=== PATIENT | male | born 2000 | race Caucasian/White ===

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

== ENCOUNTER → 2023-05-01 11:00 | Outpatient (CLI) | payer OTHER, SELFPAY ==
--- NOTE | ~2023-05-01 | XR_ITS ---
AP and oblique views of the left ribs Clinical History: Pain Findings: No rib fracture is seen. Osseous alignment is anatomic. Lungs are clear, without focal cons olidation or pleural effusion. Cardiomediastinal contour is within normal limits. Soft tissues are un remarkable. Impression: No rib fracture is seen. Reviewed, dictated and finalized at [facility]. Impression: No rib fracture is seen.
== END ==
PROVIDERS: PCP Clinical Nurse Specialist; Visit Provider Clinical Nurse Specialist
DX: R07.81 Pleurodynia (principal)
CPT/HCPCS: 71100

== ENCOUNTER → 2023-05-03 10:26 | Outpatient (CLI) | payer OTHER, MEDICAID, SELFPAY ==
--- NOTE | ~2023-05-03 | US_ITS ---
EXAMINATION: US soft tissue abdomen DATE: 05/03/2023 10:50 INDICATION: Left lower rib pain. Pleurodynia. TECHNIQUE: Multiple grayscale and Doppler ultrasound images of the abdomen were obtained. COMPARISON: Left rib radiographs 05/01/2023 FINDINGS: Unremarkable ribs are seen in the patient's area of concern. IMPRESSION: 1. Unremarkable ribs are seen in the patient's area of concern. Reviewed, dictated and finalized at location B.
== END ==
PROVIDERS: PCP Internal Medicine; Visit Provider Clinical Nurse Specialist
DX: R07.81 Pleurodynia (principal)
CPT/HCPCS: 76705

== ENCOUNTER 2025-07-01 16:37 | Emergency (ER) | payer OTHER, SELFPAY ==
--- OUTSIDE RECORDS SUMMARY | 2025-07-01 16:19 | XMS_ITS | Encounter Summary ---
Author Organization [facility] Address [address] [place] [address] Phone Care Team Providers Care Brusher Hand Name Role Phone Nenita Lim MD Primary Care Provider [phone]- [phone] Reason for Visit * Reason Comments Loss of Consciousness Laceration Encounter Details Date Type Department Care Team (Late st Contact Info) Description 07/01/2025 4:19 PM CDT - 07/01/2025 4:25 PM CDT Emergency [facility] Emergency [address] [place] [address] Discharge Disposition: LWBS Social History Tobacco Use Types Packs/Day Years Used Date Smoking Tobacco: Never Smokeless Tobacco: Never Alcohol Use Standard Drinks/Week Comments No 0 (1 standard drink = 0.6 oz pur e alcohol) Sex and Gender Information Value Date Recorded Sex Assigned at Not on file Legal Sex Male 9:01 PM CDT Gender Identity Not on file Sexual Orientation Not on file documented as of this encounter Last Filed Vital Signs Vital Sign Reading Time Taken Comments Blood Pressure 136/56 07/01/2025 3:00 PM CDT Pulse 60 07/01/2025 3:00 PM CDT Temperature 37 C (98.6 F) 07/01/2025 3:00 PM CDT Respiratory Rate 18 07/01/2025 3:00 PM CDT Oxygen Saturation 100% 07/01/2025 3:00 PM CDT Inhaled Oxygen Concentration - - Weight 63.5 kg (139 lb 15.9 oz) 07/01/2025 3:00 PM CDT Height 177.8 cm (5' 10) 07/01/2025 3:00 PM CDT Body Mass Index 20.09 07/01/2025 3:00 PM CDT documented in this encounter Medications at Time of Discharge Cetirizine HCl (ZYRTEC PO) Take by mouth. naproxen (NAPROSYN) 500 MG Tablet Take 1 Tablet by mouth 2 times daily as needed for Moderate or more severe pain. 20 Tablet 04/03/2022 documented as of this encounter ED Notes * Aleena Shepherd RN - 07/01/2025 4:25 PM CDT Attempt to call for a room and has left without being seen. * Latonia Sow RN - 07/01/2025 3:02 PM CDT Pt to triage with c/o pain to forehead from laceration. Pt states that he went with his friend to give blood today, he was watching her give blood and passed out, causing him to fall and his glasses broke cutting his left eyebrow. Vss. Bleeding controlled, dressing applied. documented in this encounter Plan of Treatment Not on file documented as of this encounter Visit Diagnoses Not on filedocumented in this encounter Care Teams Brusher Hand Relationship Specialty Start Date End Date Nenita Lim MD [address] [place] [address] PCP - General Pediatrics 06/25/19 documented as of this encounter
--- OUTSIDE RECORDS SUMMARY | 2025-07-01 16:39 | XMS_ITS | Clinical Summary ---
Author Organization [facility] [employer] Address [address] [place] [address] Care Team Providers Care [employer]ad[employer] Plans Staff Officer Name Role Phone Nenita Lim MD Primary Care Provider [phone]- [phone] Source Comments [facility] [employer],non-owned Affiliates and Associated Physician Practices is amultiple site organization consisting of ambulatory clinics and hospital sitesin [place], [place], [place] and [place]. This disclosure is being madepursuant to the Care Everywhere program and may not contain all information available regarding this patient. Last updated 18.[facility] [employer] Allergies No known active allergies Medications * Be aware that medications may not be up to date on this document. Alwaysverify current medications with the patient. cetirizine (ZYRTEC) 10 MG tablet Take 10 mg by mouth once daily as needed Active acetaminophen (TYLENOL) 500 MG tablet Take 500-1,000 mg by mouth every 6 hours as needed for Fever or Pain Maximum allowable Acetaminophen amount = 4 Grams (4000 mg) / 24 hours. Active cyproheptadine (PERIACTIN) 4 MG tablet Take 4 mg by mouth at bedtime 2 Active naproxen (NAPROSYN) 500 MG tablet Take 500 mg by mouth 2 times daily as needed 2 Active Active Problems Problem Noted Date Diagnosed Date Epigastric pain 05/06/2020 Patellar tracking disorder 04/10/2019 Medial epicondylitis of elbow, right 04/10/2019 Arthralgia 04/09/2019 Chronic pain of both knees Family History Medical History Relation Name Comments Thyroid Disease Father Arthritis - Rheumatoid Maternal Grandmother Arthritis - Rheumatoid Mother Crohn's Disease Neg Hx Lupus Neg Hx Psoriasis Neg Hx Relation Name Status Comments Father Maternal Grandmother Mother Social History Tobacco Use Types Packs/Day Years Used Date Smoking Tobacco: Never Smokeless Tobacco: Never Alcohol Use Standard Drinks/Week Comments Never 0 (1 standard drink = 0.6 oz pur e alcohol) AUDIT-C Answer Date Recorded Q1: How often do you have a drink containing alc ohol? 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 Gender Identity Not on file Sexual Orientation Not on file Last Filed Vital Signs Vital Sign Reading Time Taken Comments Blood Pressure 120/70 12/31/2020 2:30 PM CDT Pulse 56 06/15/2020 1:00 PM CDT Temperature 36.2 C (97.1 F) 06/15/2020 12:20 PM CDT Respiratory Rate 16 06/15/2020 12:30 PM CDT Oxygen Saturation 98% 06/15/2020 1:00 PM CDT Inhaled Oxygen Concentration - - Weight 64.4 kg (142 lb) 04/06/2022 11:16 AM CDT Height 178.2 cm (5' 10.16) 12/31/2020 2:30 PM C DT Body Mass Index 20.28 12/31/2020 2:30 PM CDT Plan of Treatment Health Maintenance Due Date Last Done Comments HIV SCREENING 2017 HPV VACCINE (1 - Male 3-dose series) 2017 MENINGOCOCCAL (Group B) VACC INE SHARED DECISION-MAKING (1 of 2 - Standard) 2018 HEPATITIS C SCREENING 11/16/2020 DTAP/TDAP/TD VACCINES (1 - Tdap) 2021 HEPATITIS B VACCINE (1 of 3 - 19+ 3-dose series) 2021 DEPRESSION SCREENING 10/02/2024 COVID-19 VACCINE (1 - 2023-2 5 season) 2025 INFLUENZA VACCINE (#1) 2025 ZOSTER VACCINE (1 of 2) 2052 HIB VACCINE Aged Out No longer eligi ble based on patient's age to complete this topic MENINGOCOCCAL GROUPS A/C/Y/W VACCINE Aged Out No longer eligible b ased on patient's age to complete this topic PNEUMOCOCCAL VACCINE Aged Out No long er eligible based on patient's age to complete this topic Insurance * Guarantor: X,Y Account Type Relation to Patient Date of Phone Billing Address Personal/Family [address] [place] [address] [facility] Care Teams Aadc Plans Staff Officer Relationship Specialty Start Date End Date Nenita Lim MD [address] [place] [address] PCP - General Pediatrics 10/10/16
--- OUTSIDE RECORDS SUMMARY | 2025-07-01 16:39 | XMS_ITS | Clinical Summary ---
Author Organization [facility] Address [address] [place] [address] Phone Care Team Providers Care Product Support Representative Name Role Phone Nenita Lim MD Primary Care Provider +1- [phone] Allergies No known active allergies Medications Cetirizine HCl (ZYRTEC PO) Take by mouth. Active naproxen (NAPROSYN) 500 MG Tablet Take 1 Tablet by mouth 2 times daily as needed for Moderate or more severe pain. 20 Tablet 04/03/2022 Active Encounters Date Type Department Care Team Description 07/01/2025 4:19 PM CDT - 07/01/2025 4:25 PM CDT Emergency [facility] Emergency [address] [place] [address] Discharge Disposition: LWBS 07/01/2025 Travel from Last 3 Months Social History Tobacco Use Types Packs/Day Years [...] Mass Index 20.09 07/01/2025 3:00 PM CDT Plan of Treatment Health Maintenance Due Date Last Done Comments Hepatitis C Virus (HCV) Screening 2002 Meningococcal B Immunization (1 of 2 - Standard) 2018 Influenza Immunization (#1) 2025 09/29/2003, 1 2002 SARS-COV-2 Immunization ( - season) 2025 Respiratory Syncytial Virus (RSV) Immunization (Adult) (1 - 1-dose 75+ series) 2077 Hepatitis B Immunization Completed 003, 2002, 2002 Polio (IPV) Immunization Discontinued 004, 03/21/2003, 01/20/2003 Pneumococcal Immunization Combined Aged Out 11/25/2004, 05/22/2003, 03/21/2003, Additional history exists No longer eligible based on patient's age to complete this topic Measles Mumps Rubella (MMR) Immunization Discontinued 12/07/2007, 12/10/2003 Varicella Immunization Discontinued 12/07/2007, 2003 Hepatitis A Immunization Discontinued 03/16/2012, 04/2008 DTaP/Tdap/Td Immunization Discontinued 2013, 12/07/2007, 02/20/2004, Additional history exists TdaP Immunization Completed 04/02/2014 Human Papillomavirus (HPV) Immunization Completed 03/27/2020, 11/13/2019, 09/03/2019 Meningococcal Immunization (ACWY) Completed 03/27/2020, 04/02/2014 Rotavirus Immunization Aged Out No lo nger eligible based on patient's age to complete this topic Insurance MEDICAID [employer] Care Teams Product Support Representative Relationship Specialty Start Date End Date Nenita Lim MD [address] [place] [address] PCP - General Pediatrics 06/25/19
--- OUTSIDE RECORDS SUMMARY | 2025-07-01 16:39 | XMS_ITS | Clinical Summary ---
Author Organization [facility] Address [address] [place] [address] Care Team Providers Care Life Scientists Name Role Phone Martell Forrest DO Primary Care Provider +1- [phone] Allergies Active Allergy Reactions Criticality Noted Date Comments Sertraline Vomiting Low 11/16/2023 Medications amitriptyline (ELAVIL) 10 mg tablet Take 1 tablet (10 mg total) by mouth 11/14/2023 Active FLUoxetine (PROzac) 20 mg capsule Take 1 capsule (20 mg total) by mouth daily 11/14/2023 Active Active Problems No known active problems Social History Tobacco Use Types Packs/Day Years Used Date Smoking Tobacco: Never Tobacco Cessation:Counseling Given: Not Answered Sex and Gender Information Value Date Recorded Sex Assigned at Not on file 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 Gender Identity Not on file Sexual Orientation Not on file Obstetrics History Last Filed Vital Signs Vital Sign Reading Time Taken Comments Blood Pressure 120/78 02/24/2025 11:01 AM CDT Pulse 66 02/24/2025 11:01 AM CDT Temperature 36.6 C (97.8 F) 02/24/2025 11:01 AM CDT Respiratory Rate 16 02/24/2025 11:01 AM CDT Oxygen Saturation 98% 02/24/2025 11:01 AM CDT Inhaled Oxygen Concentration - - Weight 59.4 kg (131 lb) 02/24/2025 11:01 AM CDT Height 177.8 cm (5' 10) 02/24/2025 11:01 AM CDT Body Mass Index 18.8 02/24/2025 11:01 AM CDT Plan of Treatment Health Maintenance Due Date Last Done Comments Depression Screening 2002 Hepatitis C Screening 2002 Meningococcal B Vaccine (1 o f 2 - Standard) 2018 Regular Well Visit/Exam 18-64 2020 DTaP/Tdap/Td Vaccine (7 - Td or Tdap) 04/02/2024 04/02/2014, 12/07/2007, 02/20/2004, Additional history exists Influenza Vaccine (#1) 2025 09/29/2003, 2002 Hepatitis B Screening Completed 05/22/2003 , 2002, 2002 Pneumococcal vaccine <65 Completed 005, 05/22/2003, 03/21/2003, Additional history exists Varicella Vaccines Completed 12/07/2007, 12/10/2003 HPV Vaccines Completed 03/27/2020, 11/02, 09/03/2019 Insurance [facility] Care Teams Life Scientists Relationship Specialty Start Date End Date Martell Forrest DO PCP - General Internal Medicine 11/16/23
[2025-07-01 16:42] VITALS: BP 145/73; PULSE 54; RESP 20; TEMP 37; O2SAT 100
--- OUTSIDE RECORDS SUMMARY | 2025-07-01 16:42 | XMS_ITS | Encounter Summary ---
Author Organization [facility] Care Team Providers Care Budget Officer Name Role Phone Nenita Lim MD Primary Care Provider +1- [phone] Encounter Details Date Type Department Care Team (Latest Contact Info) Description 07/01/2025 Travel Social History Tobacco Use Types Packs/Day Years [...] on file documented as of this encounter Plan of Treatment Not on file documented as of this encounter Visit Diagnoses Not on filedocumented in this encounter Care Teams Budget Officer Relationship Specialty Start Date End Date Nenita Lim MD [address] [place] [address] PCP - General Pediatrics 06/25/19 documented as of this encounter
--- NOTE | 2025-07-01 16:46 | ED.GENADULT ---
HPI - General Adult General Chief complaint: Head Injury Stated complaint: Lac close to left eyebrow Time Seen by Provider: 07/01/25 16:45 Source: patient, RN notes reviewed and old records reviewed Mode of arrival: ambulatory Limitations: no limitations History of Present Illness HPI narrative: 24-year-old male presents to the [facility] with a left eyebrow laceration. Patient states that he was walking to the car after his girlfriend had blood drawn, loss of consciousness, hit the eyebrow on a his glasses, girlfriend reports that she caught him. Did have a loss of consciousness, vomited shortly thereafter. Patient denies any headache, blurry vision or change in vision. Different denies any symptoms currently Patient reports that he was evaluated by EMS, declined transfer. Related Data Allergies Allergy/AdvReac Type Severity Reaction Status Date / Time sertraline AdvReac Intermediate Diarrhea Verified 07/01/25 16:44 Review of Systems Review of Systems: All systems reviewed & are unremarkable except as noted in HPI and below Constitutional: Constitutional: Reports no additional constitutional complaints ENT: Reports system reviewed and no additional complaints, except as documented Cardiovascular: Cardiovascular: Reports no additional cardiovascular complaints, Denies chest pain and Denies dyspnea Respiratory: Respiratory: Reports no additional respiratory complaints, Denies chest congestion, Denies cough and Denies dyspnea Musculoskeletal: Musculoskeletal: Reports no additional musculoskeletal complaints Integumentary/Breasts: Skin/Breast: Reports as per HPI [facility] Past Medical History Medical History Frequent headaches Weight loss Functional abdominal pain syndrome Irritable bowel syndrome with diarrhea Cyclical vomiting with nausea Family History Family History Father Diabetes mellitus Depression Sibling Asthma Social History Social History Smoking status: Never smoker Alcohol intake: current Drinks per week: 3 Substance use: never Lack of Transportation: YES Lack of Food: Never True Current Housing: I Have Housing Concerned About Future Housing: No Difficulty Paying Gas/Electric Bills: No Difficulty Paying for Meds: No Currently Unemployed: No Education: High School Diploma/GED Difficulty w/ Childcare or Family Care: No Comments At the time of my signature, I reviewed and agree with the nursing past medical, surgical, social, and family history. There is no relevant family history pertinent to the patient complaint. Exam Const: General: cooperative, healthy appearing, comfortable, no acute distress, well developed, alert and well nourished Nutritional Appearance: well nourished Orientation/consciousness: patient oriented x3 Limitations: no limitations HENMT: Head: normal to inspection Mouth: Yes Normal oral and palatal mucosa present, Yes lip normal, Yes tongue normal and Yes moist mucous membranes Eyes: General: appearance normal, both eyes and all related structures Alignment and Position: alignment normal Neck: Neck: normal visual inspection, full ROM, no lymphadenopathy and no meningeal signs Chest: Chest palpation & inspection: normal inspection of the chest Resp: Effort & Inspection: normal respiratory effort and able to speak in complete sentences Auscultation: clear to auscultation bilaterally, no crackles, no rales, no rhonchi and no wheezes Cardio: Rate: regular rate Skin: General skin exam: normal color and no rashes or lesions noted Wounds: wounds noted (1.5 x 0.5 cm. Clean, open wound. No bleeding) Neuro: General: patient oriented x3, gait normal, moves all extremities and no meningeal signs Cognition (Neuro): normal cognition Speech: normal speech Gait exam (Neuro): Normal gait present Extrem: General: normal to inspection, full ROM, capillary refill normal and normal gait Psych: Appearance: grossly normal and well kempt Mental Status: mental status grossly normal Speech and movement: Normal speech and movement present and Clear speech present Affect: normal affect Attitude: cooperative Course Course Level of Care: Express Care Visit Vital Signs Vital signs: Vital Signs Temperature 98.6 F 07/01/25 16:42 Pulse Rate 54 L 07/01/25 16:42 Respiratory Rate 07/01/25 16:42 Blood Pressure 145/73 H 07/01/25 16:42 Pulse Oximetry 100 07/01/25 16:42 Oxygen Delivery Room Air 07/01/25 16:42 Temperature 98.6 F 07/01/25 16:42 Pulse Rate 54 L 07/01/25 16:42 Respiratory Rate 07/01/25 16:42 Blood Pressure 145/73 H 07/01/25 16:42 Pulse Oximetry 100 07/01/25 16:42 Oxygen Delivery Room Air 07/01/25 16:42 Reviewed Procedures Laceration Laceration 1: Date: 07/01/25 Time: 17:20 Site: face Side (If applicable): left Size (cm): 1.5 Description: linear Depth: simple, single layer Local Anesthetic: lidocaine 1% and none (let) Amount of anesthesia used (mL): 3 Pre-repair: wound explored and irrigated (200) ====== Skin Level ====== Skin layer closed with: nylon Size (cm): 5-0 Number of sutures: 4 Technique: simple, interrupted ====== Subcutaneous Layer ====== ====== Muscle Layer ====== ====== Tendon Layer ====== Medical Decision Making MDM Narrative Medical decision making narrative: Patient sitting comfortably in exam room. Patient is nontoxic, vitals are stable. Patient presents for a laceration repair. Updated vaccine for tetanus. Patient denies any symptoms currently. States that he did pass out but did not hit the ground. States that he fell onto a car and the glasses cut his eyebrow. Discussed with patient and girlfriend signs and symptoms to proceed to the emergency room which both verbalized understanding. Area irrigated, sutured closed. Patient tolerated the procedure extremely well. Discharge instructions reviewed with patient, as well as provided in writing per nursing staff. The instructions also include specific and strict return/GO TO THE ER as well as f/u information. All questions have been answered, and the patient deny any further questions with discharge and discharge plan. Some parts of this dictation were generated by voice recognition software and may contain typographical and/or grammatical inaccuracies. Differential Diagnosis Differential Diagnosis: Closed head injury, laceration Medical Records Medical records reviewed: Yes I reviewed the external patient's medical records. Vital Signs Vital Signs: Vital Signs Temperature 98.6 F 07/01/25 16:42 Pulse Rate 54 L 07/01/25 16:42 Respiratory Rate 07/01/25 16:42 Blood Pressure 145/73 H 07/01/25 16:42 Pulse Oximetry 100 07/01/25 16:42 Oxygen Delivery Room Air 07/01/25 16:42 Temperature 98.6 F 07/01/25 16:42 Pulse Rate 54 L 07/01/25 16:42 Respiratory Rate 07/01/25 16:42 Blood Pressure 145/73 H 07/01/25 16:42 Pulse Oximetry 100 07/01/25 16:42 Oxygen Delivery Room Air 07/01/25 16:42 Reviewed Lab Data Lab results reviewed: Yes I reviewed the patient's lab results. Labs: Reviewed Critical Care Time Critical Care Time Critical Care Time: No Discharge Plan Discharge Clinical Impression: Vaccine for [id number], combined Laceration of eyebrow Qualifiers: Encounter type: initial encounter Laterality: left Qualified Code(s): S01.112A - Laceration without foreign body of left eyelid and periocular area, initial encounter Head injury Qualifiers: Encounter type: initial encounter Qualified Code(s): S09.90XA - Unspecified injury of head, initial encounter Patient Disposition: Home Condition: Stable Instructions: Care For Your Stitches (DC), Laceration (DC), Head Injury (ED) Additional Instructions: Wash area daily, pat dry. Wash with warm soapy water. Apply ice every 2-3 hours for 15-20 minutes while awake. Take Tylenol for pain. It is recommended you take 500 mg 3 times a day for the next couple of days to reduce the chances of discomfort. Follow-up with your primary care provider in 7 days to have the stitches removed If you develop blurry vision/change in vision, severe headache, nausea, vomiting, or any change in speech please call 911 and go directly to the emergency room Patient Language: Lao Prescriptions: No Action hydroxyzine HCl 25 mg tablet 25 mg PO BID PRN (Reason: anxiety) Qty: 20 0RF amitriptyline 10 mg tablet See Rx Instructions .ROUTE .COMPLEX Qty: 60 6RF Dose Instruction: TAKE 2 TABLETS BY MOUTH EVERY DAY AT BEDTIME Rx Instructions: TAKE 2 TABLETS BY MOUTH EVERY DAY AT BEDTIME fluoxetine 40 mg capsule 40 mg PO QAM Qty: 30 5RF Follow-up/Referrals: PHYSICIAN,[facility] [facility]ACH[facility]PERATOR [Primary Care Provider, Internal Medicine] Stand Alone Forms: Work/School Release IP Time of Disposition: 17:41
[2025-07-01] MEDS: LIDOCAINE, EPINEPHRINE, TETRACAINE VISCOUS SOLN 3 ML TOPICAL (16:53)
[2025-07-01] MEDS: TETANUS,DIPHTHERIA,AC PERTUSSIS ADULT (0.5 ML) BOOSTRIX IM (17:08)
[2025-07-01] MEDS: LIDOCAINE 1% LOCAL INJ 2 ML AMPUL 4 ML INFILTRATE (17:15)
== END 2025-07-01 17:43 | disposition home or self-care (01) ==
PROVIDERS: Emergency Provider Nurse Practitioner
DX: S01.112A Laceration without foreign body of left eyelid and periocular area, initial encounter (principal); S09.90XA Unspecified injury of head, initial encounter; W19.XXXA Unspecified fall, initial encounter
CPT/HCPCS: 12011; 90471; 90715; 99213; G0463; J2003